=== PATIENT | male | born 1955 | race American Indian/Alaskan Native ===

== ENCOUNTER 2017-02-20 17:46 | Emergency (ER) | payer BC ==
[2017-02-20 22:16] VITALS: BP 131/89
--- NOTE | 2017-02-20 23:34 | Emergency Department Report ---
Abscess Boil HPI - HPI Chief Complaint: Skin/Abscess/Foreign Body Stated Complaint: POSSIBLE SPIDER BITE Time Seen by Provider: 02/20/17 23:00 Duration: 2 Days Location: Other (right sided forehead) Severity: Mild History: No Fever, No Pain, No Purulent Drainage, No Numbness, No Foreign Body, No Previous History, No Insect Bite HPI: This is a 62-year-old male that presents with a 1 cm cellulitis to the right side of forehead. Patient denies any fever or chills. Denies any drainage or pus. Patient stated as noted this 2 days ago. Patient denies taking anything [id number] for her symptoms. Associated symptoms including pain to touch and discussed pain as aching. Patient does not seem toxic or ill in appearance. No signs of distress noted. Home Medications: Home Medications Medication Instructions Recorded Confirmed Last Taken Cephalexin [Keflex] 500 mg PO Q6H 01/04/15 01/04/15 01/04/15 04:45 Oxycodone HCl/Acetaminophen 1 tab PO Q6H PRN 01/04/15 01/04/15 01/04/15 03:00 [OxyCODONE-Acetaminophen 7.5-325] Previous Rx's Medication Instructions Recorded Last Taken Type Sulfamethoxazole/Trimethoprim 1 each PO BID 7 Days 02/20/17 Unknown Rx [Bactrim DS TAB] Allergies/Adverse Reactions: Allergies Allergy/AdvReac Type Severity Reaction Status Date / Time No Known Allergies Allergy Verified 01/04/15 07:59 ED Review of Systems ROS: Stated complaint: POSSIBLE SPIDER BITE Other details as noted in HPI Constitutional: denies: chills, fever Eyes: denies: eye pain, eye discharge, vision change ENT: denies: ear pain, throat pain Respiratory: denies: cough, shortness of breath, wheezing Cardiovascular: denies: chest pain, palpitations Endocrine: no symptoms reported Gastrointestinal: denies: abdominal pain, nausea, diarrhea Genitourinary: denies: urgency, dysuria Musculoskeletal: denies: back pain, joint swelling, arthralgia Skin: denies: rash, lesions Neurological: denies: headache, weakness, paresthesias Psychiatric: denies: anxiety, depression Hematological/Lymphatic: denies: easy bleeding, easy bruising ED Past Medical Hx - Past Medical History Previous Medical History?: Yes Hx Hypertension: No Hx Congestive Heart Failure: No Hx Diabetes: No Hx GERD: Yes Hx Renal Disease: No Hx Asthma: No Hx COPD: No - Surgical History Past Surgical History?: Yes Additional Surgical History: HEMORRHOIDECTOMY. UMBILICAL HERNIA REPAIR 12/30/14 - Social History Smoking Status: Never Smoker Substance Use Type: Alcohol - Medications Home Medications: Home Medications Medication Instructions Recorded Confirmed Last Taken Type Cephalexin [Keflex] 500 mg PO Q6H 01/04/15 01/04/15 01/04/15 04:45 History Oxycodone HCl/Acetaminophen 1 tab PO Q6H PRN 01/04/15 01/04/15 01/04/15 03:00 History [OxyCODONE-Acetaminophen 7.5-325] Sulfamethoxazole/Trimethoprim 1 each PO BID 7 Days 02/20/17 Unknown Rx [Bactrim DS TAB] ED Abscess Boil Physical Exam - Exam General: Vital signs noted. No distress. Alert and acting appropriately. Front/Back of Body, Lg (Color): 1 - 1cm erythema Size: 1 cm Exam: Yes Normal Neurologic Exam, Yes Normal Circulation, No Tenderness, No Fluctuance, No Surrounding Cellulites/Erythema, No Lymphangitis, No Crepitation , No Heart Murmur Exam: GENERAL: The patient is a well-developed, well-nourished male in no apparent distress. He is alert and oriented x3. VITAL SIGNS: Stable. HEENT: Head is normocephalic and atraumatic. Extraocular muscles are intact. Pupils are equal, round, and reactive to light and accommodation. Nares appeared normal. Mouth is well hydrated and without lesions. Mucous membranes are moist. Posterior pharynx clear of any exudate or lesions. NECK: Supple. No carotid bruits. No lymphadenopathy or thyromegaly. LUNGS: Clear to auscultation. HEART: Regular rate and rhythm without murmur. ABDOMEN: Soft, nontender, and nondistended. Positive bowel sounds. No hepatosplenomegaly was noted. EXTREMITIES: Without any cyanosis, clubbing, rash, lesions or edema. NEUROLOGIC : Cranial nerves II through XII are grossly intact. PSYCHIATRIC: Flat affect, but denies suicidal or homicidal ideations. SKIN: 1cm erythema with slightly edema. No pus or drainage noted. Slightly tender to touch. ED Course Vital Signs 02/20/17 02/20/17 02/20/17 18:02 22:15 23:06 Temperature 98.3 F Pulse Rate 80 61 Respiratory 16 18 18 Rate Blood Pressure 123/84 Blood Pressure 131/89 [Left] O2 Sat by Pulse 100 97 98 Oximetry Critical care attestation.: If time is entered above; I have spent that time in minutes in the direct care of this critically ill patient, excluding procedure time. ED Medical Decision Making - Medical Decision Making Ed course: 62-year-old male that presents with right sided forehead cellulitis 1- at the time of discharge the patient was prescribed Bactrim. 2- I instructed the patient to follow signs and symptoms of fever, swelling, pus , drainage, or headache, and if the symptoms are present to report back to emergency room. 3- I used a permanent marker to outline th cellulitic area and instructed patient that if area of redness past the line to report back to emergency room or follow-up with her primary care doctor. 4- I also instructed patient to follow up with his primary care doctor in 3-5 days 5- at the time of discharge the patient denies toxic or ill in appearance. No signs of distress noted. ED Disposition Clinical Impression: Cellulitis Qualifiers: Site of cellulitis: face Qualified Code(s): L03.211 - Cellulitis of face Disposition: DISCHARGED TO HOME OR SELFCARE Is pt being admited?: No Does the pt Need Aspirin: No Condition: Stable Instructions: Cellulitis (ED) Additional Instructions: Follow-up with a primary care doctor in 3-5 days. Take full course of antibiotic as prescribed. If signs and symptoms of fever, swelling, pus, drainage, or headache, and if the symptoms are present to report back to emergency room. Prescriptions: Sulfamethoxazole/Trimethoprim [Bactrim DS TAB] 1 each PO BID 7 Days Referrals: PRIMARY CARE, [Primary Care Provider] - 3-5 Days [facility] [Outside] - 3-5 Days [facility] [Outside] - 3-5 Days Forms: Work/School Release Form(ED)
== END 2017-02-20 23:46 | disposition home or self-care (01) ==
LOC: ED 17:46
DX: L03.211 Cellulitis of face (principal); K21.9 Gastro-esophageal reflux disease without esophagitis; Z90.89 Acquired absence of other organs
CPT/HCPCS: 99281

== ENCOUNTER 2020-08-20 23:01 | Observation (INO) | payer BC ==
--- NOTE | 2020-08-21 00:43 | Emergency Department Report ---
ED Dizziness [facility] - General Chief Complaint: Dizziness Stated Complaint: DIZZINESS Time Seen by Provider: 08/21/20 00:16 Source: patient Mode of arrival: Ambulatory Limitations: No Limitations - History of Present Illness Initial Comments: Patient is here with dizziness, slurred speech that has been progressively worsening for the past two days. no focal weakness. Patient denies any sick contacts, recent travel, nausea, vomiting or chest pain. MD Complaint: dizziness, lightheadedness, near syncope -: days(s) (1) Timing: sudden onset Description: sense of movement, "room spinning", off-balance, difficulty walking History of Same: No History of Trauma: No Severity: severe Improves With: nothing Worsens With: movement Associated Symptoms: denies other symptoms - Related Data Home Medications Medication Instructions Recorded Confirmed Last Taken Oxycodone HCl/Acetaminophen 1 tab PO Q6H PRN 01/04/15 01/04/15 01/04/15 03:00 [OxyCODONE-Acetaminophen 7.5-325] cephALEXin [Keflex] 500 mg PO Q6H 01/04/15 01/04/15 01/04/15 04:45 Previous Rx's Medication Instructions Recorded Last Taken Type Sulfamethoxazole/Trimethoprim 1 each PO BID 7 Days tablet 02/20/17 Unknown Rx [Bactrim DS TAB] Allergies Allergy/AdvReac Type Severity Reaction Status Date / Time No Known Allergies Allergy Verified 01/04/15 07:59 ED Review of Systems ROS: Stated complaint: DIZZINESS Other details as noted in HPI ED Past Medical Hx - Past Medical History Previous Medical History?: Yes Hx Hypertension: No Hx Congestive Heart Failure: No Hx Diabetes: No Hx GERD: Yes Hx Renal Disease: No Hx Asthma: No Hx COPD: No - Surgical History Past Surgical History?: Yes Additional Surgical History: HEMORRHOIDECTOMY. UMBILICAL HERNIA REPAIR 12/30/14 - Social History Smoking Status: Never Smoker Substance Use Type: None - Medications Home Medications: Home Medications Medication Instructions Recorded Confirmed Last Taken Type Oxycodone HCl/Acetaminophen 1 tab PO Q6H PRN 01/04/15 01/04/15 01/04/15 03:00 History [OxyCODONE-Acetaminophen 7.5-325] cephALEXin [Keflex] 500 mg PO Q6H 01/04/15 01/04/15 01/04/15 04:45 History Sulfamethoxazole/Trimethoprim 1 each PO BID 7 Days tablet 02/20/17 Unknown Rx [Bactrim DS TAB] ED Physical Exam - General Limitations: No Limitations General appearance: alert, in no apparent distress - Head Head exam: Present: atraumatic, normocephalic - Eye Eye exam: Present: normal appearance - ENT ENT exam: Present: mucous membranes moist - Neck Neck exam: Present: normal inspection - Respiratory Respiratory exam: Present: normal lung sounds bilaterally. Absent: respiratory distress - Cardiovascular Cardiovascular Exam: Present: regular rate, normal rhythm. Absent: systolic murmur, diastolic murmur, rubs, gallop - GI/Abdominal GI/Abdominal exam: Present: soft, normal bowel sounds - Rectal Rectal exam: Present: deferred - Extremities Exam Extremities exam: Present: normal inspection - Back Exam Back exam: Present: normal inspection - Neurological Exam Neurological exam: Present: alert, oriented X3 - Psychiatric Psychiatric exam: Present: normal affect, normal mood - Skin Skin exam: Present: warm, dry, intact, normal color. Absent: rash ED Course Vital Signs 08/20/20 08/21/20 23:25 01:06 Temperature 99.0 F Pulse Rate 93 H 78 Respiratory 20 18 Rate Blood Pressure 160/137 Blood Pressure 126/82 [Right] O2 Sat by Pulse 91 98 Oximetry ED Medical Decision Making - Lab Data Result diagrams: 08/21/20 00:15 08/21/20 00:15 - EKG Data -: EKG Interpreted by Me EKG shows normal: sinus rhythm Rate: normal - EKG Data Interpretation: other (old inf infarct,none acute) Critical care attestation.: If time is entered above; I have spent that time in minutes in the direct care o f this critically ill patient, excluding procedure time. ED Disposition Clinical Impression: Labile hypertension, Severe dizziness Disposition: [id number] OP ADMIT IP TO THIS HOSP Is pt being admited?: Yes Does the pt Need Aspirin: No Condition: Stable - Assessment Assessment Interval: Baseline - Level of Consciousness 1a. Level of Consciousness: alert/keenly responsive - LOC Questions 1b. LOC Questions: answers both correctly - LOC Command 1c. LOC Commands: performs tasks correctly - Best Gaze 2. Best Gaze: normal - Visual 3. Visual: no visual loss - Facial Palsy 4. Facial Palsy: normal symmetrical movement - Motor Arm 5a. Motor Arm Left: no drift 5b. Motor Arm Right: no drift - Motor Leg 6a. Motor Leg Left: no drift 6b. Motor Leg Right: no drift - Limb Ataxia 7. Limb Ataxia: absent - Sensory 8. Sensory: normal - Best Language 9. Best Language: no aphasia - Dysarthria 10. Dysarthria: normal - Extinction and Inattention 11. Extinction/Inattention: no abnormality - Scoring Total Score: 0 Stroke Severity: No Stroke Symptoms
--- NOTE | 2020-08-21 00:44 | Cat Scan Report ---
CT HEAD/BRAIN WO CON INDICATION / CLINICAL INFORMATION: Dizziness/lightheaded for 2 weeks. TECHNIQUE: All CT scans at this location are performed using CT dose reduction for ALARA by means of automated e xposure control. COMPARISON: None available. FINDINGS: The ventricular system is normal in size and configuration. No focal lesion or mass effect is seen. T here is no evidence of intracranial hemorrhage or acute major vessel occlusion. The calvarium is inta ct. The visualized paranasal sinuses and mastoid air cells are clear. IMPRESSION: No acute abnormality. Signer Name: Vitor Montelongo MD Signed: 08/21/2020 12:39 AM Workstation Name: [id number]
[2020-08-21 00:45] LABS: Creatine Kinase MB 1.8 ng/mL (0.0-4.0)
[2020-08-21 00:46] LABS: Alanine Aminotransferase 54 units/L (7-56); Albumin 3.9 g/dL (3.9-5); BUN/Creatinine Ratio 11; Blood Urea Nitrogen 9 mg/dL (9-20); Calcium 8.2 mg/dL (8.4-10.2); Hemolysis Index 10
--- NOTE | 2020-08-21 00:51 | XRay Report ---
CHEST 1 VIEW 12:42 AM INDICATION / CLINICAL INFORMATION: Lightheadedness/Dizziness. COMPARISON: None available. FINDINGS: SUPPORT DEVICES: None. HEART / MEDIASTINUM: The heart size and pulmonary vasculature are normal. LUNGS / PLEURA: There is mild patchy subsegmental parenchymal disease in the right midlung and left l sury base. No pleural effusion. No pneumothorax. ADDITIONAL FINDINGS: The left hemidiaphragm is mildly elevated. IMPRESSION: 1. Mildly elevated left hemidiaphragm and mild associated left basilar subsegmental atelectasis. 2. Subsegmental parenchymal disease in the right mid lung may be related to subsegmental atelectasis or subsegmental pneumonia. Signer Name: Vitor Montelongo MD Signed: 08/21/2020 12:47 AM Workstation Name: [id number]
[2020-08-21 01:05] LABS: Basophils % (Auto) 0.3 % (0.0-1.8); Hematocrit 40.1 % (35.5-45.6); Hemoglobin 12.7 gm/dl (11.8-15.2); Lymphocytes # (Auto) 0.6 K/mm3 (1.2-5.4); Mean Corpuscular HGB Conc 32 % (32-34); Mean Corpuscular Volume 74 fl (84-94); Monocytes # (Auto) 0.2 K/mm3 (0.0-0.8); Monocytes % (Auto) 4.3 % (0.0-7.3); Platelet Count 146 K/mm3 (140-440); Red Blood Count 5.39 M/mm3 (3.65-5.03)
[2020-08-21 01:14] LABS: INR 0.95 (0.87-1.13)
[2020-08-21 01:15] LABS: Partial Thromboplastin Time 36.8 Sec. (24.2-36.6)
[2020-08-21] MEDS ORDERED: ACETAMINOPHEN 325 MG TAB PO PRN (02:03)
[2020-08-21] MEDS ORDERED: METOCLOPRAMIDE 10 MG TAB PO PRN (02:03)
[2020-08-21] MEDS ORDERED: MAGNESIUM HYDROXIDE (MOM) ORAL LIQD UDC PO PRN ×2 (02:03)
[2020-08-21] MEDS ORDERED: PROMETHAZINE 25 MG RECT SUPP PR PRN (02:03)
[2020-08-21] MEDS ORDERED: ONDANSETRON 4 MG/2 ML INJ IV PRN ×2 (02:03)
--- NOTE | 2020-08-21 02:20 | History and Physical Report ---
History of Present Illness Date of examination: 08/21/20 Date of admission: 08/21/20 01:21 Chief complaint: Dizziness Near Syncope History of present illness: 65-year-old male with no significant past medical history except GERD , history of hemorrhoidectomy in the past and umbilical hernia repair presenting to the emergency room today with a complaint of severe dizziness and slurred speech . Symptoms were said to have started 2 days ago and got worse today. He denies any headaches, no fever or chills, no chest pain or shortness of breath, no nausea vomiting and no diarrhea. Patient denies any hematuria or dysuria. Denies any sick contacts and no recent travel, denies any contact with anyone with COVID-19. Upon arrival in the emergency room patient states he feels lightheaded had a near syncopal episode. However he indicates that his speech has improved . Work-up in the emergency room did not reveal any acute abnormality however his blood pressure was slightly elevated. He is not currently on any antihypertensive medication. Patient is being admitted for evaluation of his severe dizziness, slow speech and to rule out CVA. Past History Past Medical History: GERD Past Surgical History: hernia repair (Umbilical Hernia repair in 12/2014,Hemorrhoidectomy), Other Social history: no significant social history Family history: no significant family history Medications and Allergies Allergies Allergy/AdvReac Type Severity Reaction Status Date / Time No Known Allergies Allergy Verified 01/04/15 07:59 Home Medications Medication Instructions Recorded Confirmed Last Taken Type Oxycodone HCl/Acetaminophen 1 tab PO Q6H PRN 01/04/15 01/04/15 01/04/15 03:00 History [OxyCODONE-Acetaminophen 7.5-325] cephALEXin [Keflex] 500 mg PO Q6H 01/04/15 01/04/15 01/04/15 04:45 History Sulfamethoxazole/Trimethoprim 1 each PO BID 7 Days tablet 02/20/17 Unknown Rx [Bactrim DS TAB] Review of Systems Constitutional: no fever, no chills Ears, nose, mouth and throat: no nasal congestion, no sore throat Cardiovascular: no chest pain, no palpitations Respiratory: no cough, no shortness of breath Gastrointestinal: no abdominal pain, no nausea, no vomiting, no diarrhea Genitourinary Male: no dysuria, no flank pain Musculoskeletal: no neck pain, no low back pain Integumentary: no rash, no pruritis Neurological: syncope (Near Syncope), vertigo, change in speech, no headaches, no confusion Psychiatric: no anxiety, no depression Exam - Constitutional Vitals: Temp Pulse Resp BP Pulse Ox 99.0 F 70 14 137/84 96 08/20/20 23:25 08/21/20 02:00 08/21/20 02:00 08/21/20 02:00 08/21/20 02:00 General appearance: Present: no acute distress, well-nourished - EENT Eyes: Present: PERRL, EOM intact, scleral icterus ENT: hearing intact, clear oral mucosa, dentition normal - Neck Neck: Present: supple, normal ROM - Respiratory Respiratory effort: normal Respiratory: bilateral: CTA - Cardiovascular Rhythm: regular Heart Sounds: Present: S1 & S2. Absent: gallop, systolic murmur, diastolic murmur, rub - Extremities Extremities: no ischemia, pulses intact, pulses symmetrical, No edema, Full ROM Peripheral Pulses: within normal limits - Abdominal General gastrointestinal: Present: soft, non-tender, non-distended, normal bowel sounds. Absent: mass - Integumentary Integumentary: Present: clear, warm, dry - Musculoskeletal Musculoskeletal: strength equal bilaterally - Psychiatric Psychiatric: appropriate mood/affect, intact judgment & insight, memory intact, cooperative - Neurologic Neurologic: CNII-XII intact, no focal deficits, moves all extremities HEART Score - HEART Score Troponin: Troponin T < 0.010 ng/mL (0.00-0.029) 08/21/20 00:15 Results - Labs CBC & Chem 7: 08/21/20 00:15 08/21/20 00:15 Labs: Abnormal lab results 08/21/20 08/21/20 08/21/20 Range/Units 00:15 00:15 00:30 WBC 4.0 L (4.5-11.0) K/mm3 RBC 5.39 H (3.65-5.03) M/mm3 MCV 74 L (84-94) fl MCH 24 L (28-32) pg Lymph # (Auto) 0.6 L (1.2-5.4) K/mm3 Seg Neutrophils % 80.4 H (40.0-70.0) % APTT 36.8 H (24.2-36.6) Sec. Glucose 116 H (75-100) mg/dL Calcium 8.2 L (8.4-10.2) mg/dL AST 55 H (5-40) units/L Assessment and Plan - Patient Problems (1) Severe dizziness Current Visit: Yes Status: Acute Plan to address problem: Etiology is unclear however patient will be scheduled for MRI of the brain, ech ocardiogram and carotid Doppler. We will also rule out for possible CVA. We will place consult to neurology for evaluation. (2) Labile hypertension Current Visit: Yes Status: Acute Plan to address problem: We will monitor vital signs closely. Will commence on antihypertensive medications as needed. (3) DVT prophylaxis Current Visit: Yes Status: Acute Plan to address problem: Patient placed on subcutaneous Lovenox. (4) Full code status Current Visit: Yes Status: Acute
[2020-08-21] MEDS: ACETAMINOPHEN 325 MG TAB PO PRN ×3 (03:50→23:15)
--- NOTE | 2020-08-21 10:47 | Magnetic Resonance Report ---
MR brain wo con INDICATION / CLINICAL INFORMATION: 65 years Male; dizziness, lightheaded for 2 weeks.. TECHNIQUE: Multiplanar, multisequence MR images of the brain were obtained. The study was performed using the fa st acquisition sequences. COMPARISON: The study is compared to the previous CT of 08/21/2020. FINDINGS: BRAIN / INTRACRANIAL CONTENTS: On the FLAIR sequences, there are a few scattered small hyperintense f oci involving the cerebral white matter most consistent with microvascular angiopathy. The diffusion imaging reveals no evidence of acute infarction. There is mild cerebral atrophy. The ventricular syst em is correspondingly appropriate in size and configuration. No extra-axial fluid collections or sign ificant mass effect is identified. CRANIOCERVICAL JUNCTION: No significant abnormality. VASCULAR FLOW-VOIDS: No significant abnormality. ORBITS: No significant abnormality of visualized orbits. SINUSES / MASTOIDS: There is mild mucosal thickening within the ethmoid air cells. ADDITIONAL FINDINGS: None. IMPRESSION: 1. There is mild microvascular angiopathy without evidence of recent infarction. Signer Name: Nehemias Phillips MD Signed: 08/21/2020 10:43 AM Workstation Name: [id number]
--- NOTE | 2020-08-21 11:20 | Vascular Lab Report ---
VL carotid duplex BILAT INDICATION / CLINICAL INFORMATION: stroke. COMPARISON: None available. FINDINGS: Only minimal plaque formation is demonstrated at the bifurcations. Velocity measurements and waveform analysis indicate less than 50% stenosis of each internal carotid artery, according to Nascet criter ia. Normal antegrade flow is demonstrated in both vertebral arteries. IMPRESSION: 1. No significant stenosis. Signer Name: Tre Ospina MD Signed: 08/21/2020 11:15 AM Workstation Name: [id number]
[2020-08-21] MEDS: ASPIRIN 325 MG TAB PO SCH (11:46)
[2020-08-21] MEDS ORDERED: FLU VACC QUAD 2020-2021 (6 months +)/PF 60 0.5 ML SYRINGE IM ONE (12:00)
[2020-08-21] MEDS ORDERED: KETOROLAC 30 MG/1 ML INJ IV ONE (13:04)
--- NOTE | 2020-08-21 13:13 | Event Note ---
Date: 08/21/20 Patient seen and examined reports dizziness with change in position. This likely represents symptomatic of vertigo. We will start the patient on scheduled meclizin. Will give Toradol for complaint headache.
[2020-08-21] MEDS: MECLIZINE 25 MG TAB PO SCH ×2 (13:49→22:32)
[2020-08-21 19:04] LABS: Bacteria,Urine 1+ /HPF (Negative); Bilirubin,Urine NEG (Negative); Blood,Urine NEG (Negative); Color,Urine Yellow (Yellow); Mucus,Urine FEW /HPF; Protein,Urine <15 mg/dL mg/dL (Negative)
[2020-08-21 19:09] LABS: Amphetamine Screen,Urine Negative; Benzodiazepines Screen,Urine Negative; Cannabinoid Screen,Urine Negative; Cocaine Screen,Urine Negative; Methadone Screen,Urine Negative; Opiate Screen,Urine Negative
[2020-08-21] MEDS: traMADol 50 MG TAB PO PRN (22:32)
[2020-08-21] MEDS: ENOXAPARIN 40 MG/0.4 ML INJ SUB-Q SCH (22:33)
[2020-08-22 04:55] LABS: Basophils % (Auto) 0.2 % (0.0-1.8); Hemoglobin 12.6 gm/dl (11.8-15.2); Lymphocytes # (Auto) 0.6 K/mm3 (1.2-5.4); Lymphocytes % (Auto) 11.5 % (13.4-35.0); Mean Corpuscular HGB Conc 32 % (32-34); Mean Corpuscular Volume 74 fl (84-94); Monocytes # (Auto) 0.2 K/mm3 (0.0-0.8); Platelet Count 183 K/mm3 (140-440); Red Blood Count 5.26 M/mm3 (3.65-5.03); Red Cell Distribution Width 14.1 % (13.2-15.2)
[2020-08-22 05:13] LABS: INR 0.96 (0.87-1.13)
[2020-08-22 05:22] LABS: BUN/Creatinine Ratio 13; Blood Urea Nitrogen 12 mg/dL (9-20); Calcium 8.3 mg/dL (8.4-10.2); Chol/HDL Ratio 4.19 %; HDL Cholesterol 42 mg/dL (40-59); Hemolysis Index 1; LDL Cholesterol,Direct 103 mg/dL (50-130)
[2020-08-22] MEDS: MECLIZINE 25 MG TAB PO SCH ×3 (05:50→21:30)
[2020-08-22] MEDS: ACETAMINOPHEN 325 MG TAB PO PRN (10:02)
[2020-08-22] MEDS: ASPIRIN 325 MG TAB PO SCH (10:02)
--- NOTE | 2020-08-22 12:23 | Progress Note ---
Assessment and Plan Assessment and plan: 65-year-old male with no significant past medical history except GERD , history of hemorrhoidectomy in the past and umbilical hernia repair presenting to the emergency room today with a complaint of severe dizziness and slurred speech . Symptoms were said to have started 2 days ago and got worse today. He denies any headaches, no fever or chills, no chest pain or shortness of breath, no nausea vomiting and no diarrhea. Patient denies any hematuria or dysuria. Denies any sick contacts and no recent travel, denies any contact with anyone with COVID-19. Upon arrival in the emergency room patient states he feels lightheaded had a near syncopal episode. However he indicates that his speech has improved . Work-up in the emergency room did not reveal any acute abnormality however his blood pressure was slightly elevated. He is not currently on any antihypertensive medication. Patient is being admitted for evaluation of his severe dizziness, slow speech and to rule out CVA. Imaging studies have been negative so far including CT and MRI Patient today informs me of hx of Migraine. Vertigo Migraine headache with syncope GERD Hypertension Plan Continue supportive care Place on telemetry monitoring Oxygen Pain control Echo pending. Orthostatic checked and normal Gentle hydration. Continue observation and anticipate discharge in am History Interval history: Patient seen and exmained, had a repeat syncopal episode last night with associa dariusz nausea. Hospitalist Physical - Physical exam Narrative exam: VITAL SIGNS: Reviewed. GENERAL: The patient appears normally developed, Vital signs as documented. HEAD: No signs of head trauma. EYES: Pupils are equal. Extraocular motions intact. No nystagmus appreciated EARS: Hearing grossly intact. MOUTH: Oropharynx is normal. NECK: No adenopathy, no JVD. CHEST: Chest with clear breath sounds bilaterally. No wheezes, rales, or rhonchi. CARDIAC: Regular rate and rhythm. S1 and S2, without murmurs, gallops, or rubs. VASCULAR: No Edema. Peripheral pulses normal and equal in all extremities. ABDOMEN: Soft, non tender and non distended. No rebound or guarding, and no masses palpated. Bowel Sounds normal. MUSCULOSKELETAL: Good range of motion of all major joints. Extremities without clubbing, cyanosis or edema. NEUROLOGIC EXAM: Alert and oriented x 3 No focal sensory or strength deficit s. Speech normal. Follows commands. PSYCHIATRIC: Mood normal. SKIN: detail exam as documented in skin assessment - Constitutional Vitals: Temp Pulse Resp BP Pulse Ox 98.4 F 89 20 122/74 97 08/22/20 05:29 08/21/20 22:00 08/22/20 05:29 08/22/20 05:29 08/21/20 05:12 General appearance: Present: no acute distress, well-nourished HEART Score - HEART Score Troponin: Troponin T < 0.010 ng/mL (0.00-0.029) 08/21/20 00:15 Results - Labs CBC & Chem 7: 08/22/20 04:09 08/22/20 04:09 Labs: Laboratory Last Values WBC 5.4 K/mm3 (4.5-11.0) 08/22/20 04:09 RBC 5.26 M/mm3 (3.65-5.03) H 08/22/20 04:09 Hgb 12.6 gm/dl (11.8-15.2) 08/22/20 04:09 Hct 39.0 % (35.5-45.6) 08/22/20 04:09 MCV 74 fl (84-94) L 08/22/20 04:09 MCH 24 pg (28-32) L 08/22/20 04:09 MCHC 32 % (32-34) 08/22/20 04:09 RDW 14.1 % (13.2-15.2) 08/22/20 04:09 Plt Count 183 K/mm3 (140-440) 08/22/20 04:09 Lymph % (Auto) 11.5 % (13.4-35.0) L 08/22/20 04:09 [place] % (Auto) 4.0 % (0.0-7.3) 08/22/20 04:09 Eos % (Auto) 0.0 % (0.0-4.3) 08/22/20 04:09 Baso % (Auto) 0.2 % (0.0-1.8) 08/22/20 04:09 Lymph # (Auto) 0.6 K/mm3 (1.2-5.4) L 08/22/20 04:09 [place] # (Auto) 0.2 K/mm3 (0.0-0.8) 08/22/20 04:09 Eos # (Auto) 0.0 K/mm3 (0.0-0.4) 08/22/20 04:09 Baso # (Auto) 0.0 K/mm3 (0.0-0.1) 08/22/20 04:09 Seg Neutrophils % 84.3 % (40.0-70.0) H 08/22/20 04:09 Seg Neutrophils # 4.5 K/mm3 (1.8-7.7) 08/22/20 04:09 PT 13.0 Sec. (12.2-14.9) 08/22/20 04:09 INR 0.96 (0.87-1.13) 08/22/20 04:09 APTT 36.8 Sec. (24.2-36.6) H 08/21/20 00:30 Sodium 137 mmol/L (137-145) 08/22/20 04:09 Potassium 4.0 mmol/L (3.6-5.0) 08/22/20 04:09 Chloride 98.0 mmol/L (98-107) 08/22/20 04:09 Carbon Dioxide 30 mmol/L (22-30) 08/22/20 04:09 Anion Gap 13 mmol/L 08/22/20 04:09 BUN 12 mg/dL (9-20) 08/22/20 04:09 Creatinine 0.9 mg/dL (0.8-1.3) 08/22/20 04:09 Estimated GFR > 60 ml/min 08/22/20 04:09 BUN/Creatinine Ratio 13 % 08/22/20 04:09 Glucose 123 mg/dL (75-100) H 08/22/20 04:09 Calcium 8.3 mg/dL (8.4-10.2) L 08/22/20 04:09 Total Bilirubin 0.70 mg/dL (0.1-1.2) 08/21/20 00:15 AST 55 units/L (5-40) H 08/21/20 00:15 ALT 54 units/L (7-56) 08/21/20 00:15 Alkaline Phosphatase 105 units/L (35-129) 08/21/20 00:15 Total Creatine Kinase 118 units/L (55-170) 08/21/20 00:15 CK-MB (CK-2) 1.8 ng/mL (0.0-4.0) 08/21/20 00:15 CK-MB (CK-2) Rel Index 1.5 (0-4) 08/21/20 00:15 Troponin T < 0.010 ng/mL (0.00-0.029) 08/21/20 00:15 Total Protein 6.7 g/dL (6.3-8.2) 08/21/20 00:15 Albumin 3.9 g/dL (3.9-5) 08/21/20 00:15 Albumin/Globulin Ratio 1.4 % 08/21/20 00:15 Triglycerides 193 mg/dL (2-149) H 08/22/20 04:09 Cholesterol 176 mg/dL (50-199) 08/22/20 04:09 LDL Cholesterol Direct 103 mg/dL (50-130) 08/22/20 04:09 HDL Cholesterol 42 mg/dL (40-59) 08/22/20 04:09 Cholesterol/HDL Ratio 4.19 % 08/22/20 04:09 Urine Color Yellow (Yellow) 08/21/20 18:00 Urine Turbidity Clear (Clear) 08/21/20 18:00 Urine pH 7.0 (5.0-7.0) 08/21/20 18:00 Ur Specific [place] 1.004 (1.003-1.030) 08/21/20 18:00 Urine Protein <15 mg/dl mg/dL (Negative) 08/21/20 18:00 Urine Glucose (UA) Neg mg/dL (Negative) 08/21/20 18:00 Urine Ketones Neg mg/dL (Negative) 08/21/20 18:00 Urine Blood Neg (Negative) 08/21/20 18:00 Urine Nitrite Neg (Negative) 08/21/20 18:00 Urine Bilirubin Neg (Negative) 08/21/20 18:00 Urine Urobilinogen 2.0 mg/dL (<2.0) 08/21/20 18:00 Ur Leukocyte Esterase Neg (Negative) 08/21/20 18:00 Urine WBC (Auto) 1.0 /HPF (0.0-6.0) 08/21/20 18:00 Urine RBC (Auto) 5.0 /HPF (0.0-6.0) 08/21/20 18:00 U Epithel Cells (Auto) < 1.0 /HPF (0-13.0) 08/21/20 18:00 Urine Bacteria (Auto) 1+ /HPF (Negative) 08/21/20 18:00 Urine Mucus Few /HPF 08/21/20 18:00 Urine Opiates Screen Negative 08/21/20 18:00 Urine Methadone Screen Negative 08/21/20 18:00 Ur Barbiturates Screen Negative 08/21/20 18:00 Ur Phencyclidine Scrn Negative 08/21/20 18:00 Ur Amphetamines Screen Negative 08/21/20 18:00 U Benzodiazepines Scrn Negative 08/21/20 18:00 Urine Cocaine Screen Negative 08/21/20 18:00 U Marijuana (THC) Screen Negative 08/21/20 18:00 Drugs of Abuse Note Disclamer 08/21/20 18:00 - Diagnostic Impressions Diagnostic Impressions: Echocardiogram 08/21/20 02:09 Transthoracic Echocardiogram Indication: Stroke BP: 118/72 HR: 80 Conclusions *Global left ventricular systolic function is normal. *The estimated ejection fraction is 55-60%. *Mild concentric left ventricular hypertrophy is observed. *There is no significant mitral regurgitation. *There is trace tricuspid regurgitation. *There is evidence of borderline pulmonary hypertension. *The right ventricular systolic pressure is calculated at 28 mmHg. *A patent foramen ovale is not demonstrated by agitated saline contrast. Findings Left Ventricle: The left ventricular chamber size is normal. Mild concentric left ventricular hypertrophy is observed. Global left ventricular systolic function is normal. The estimated ejection fraction is 55-60%. Left Atrium: The left atrial chamber size is normal. Right Ventricle: The right ventricular cavity size is normal. The right ventricular global systolic function is normal. Right Atrium: The right atrial cavity size is normal. A patent foramen ovale is not demonstrated by agitated saline contrast. Aortic Valve: The aortic valve is trileaflet. The aortic valve leaflets are mildly thickened. There is no evidence of aortic regurgitation. There is no evidence of aortic stenosis. Mitral Valve: The mitral valve leaflets appear normal. There is no evidence of mitral regurgitation. There is no evidence of mitral stenosis. Tricuspid Valve: There is trace tricuspid regurgitation. The right ventricular systolic pressure is calculated at 28 mmHg. There is evidence of borderline pulmonary hypertension. Pulmonic Valve: There is trace pulmonic regurgitation. Pericardium: There is no pericardial effusion. Aorta: There is no dilatation of the ascending aorta. There is no dilatation of the aortic root. Venous: The inferior vena cava appears normal in size. Measurements Chambers 2D Name Value Normal Range IVSd (2D) 1.01 cm (0.6 - 1.1) LVPWd (2D) 1.09 cm (0.6 - 1.1) LVIDd (2D) 4.17 cm (3.7 - 5.6) LVIDs (2D) 3.07 cm (2 - 3.8) LV FS (2D) 26.27 % - EF Teichholz (2D) 51.9 % - Ao root diameter (2D) 3.02 cm (2 - 3.7) Volumes/Mass Name Value Normal Range LA ESV SP 4CH (A/L) 26 ml - LA ESV SP 2CH (A/L) 43.81 ml - LA ESV BP (A/L) 35.94 ml - LA ESV BP (A/L) index 15.56 ml/m2 - LA ESV SP 4CH (MOD) 24.12 ml - LA ESV SP 2CH (MOD) 42.91 ml - LA ESV BP (MOD) 34.14 ml - LA ESV BP (MOD) index 14.78 ml/m2 - Diastolic/Systolic Function Name Value Normal Range MV E-wave Vmax 0.58 m/sec - MV deceleration time 223.42 msec - MV A-wave Vmax 0.58 m/sec - MV E:A ratio 1 ratio - Aortic Valve Name Value Normal Range AV Vmax 1.35 m/sec - AV VTI 24.73 cm - AV peak gradient 7.32 mmHg - AV mean gradient 3.81 mmHg - LVOT diameter 2 cm - LVOT Vmax 0.83 m/sec - LVOT VTI 17.1 cm - LVOT peak gradient 2.75 mmHg - LVOT mean gradient 1.74 mmHg - SV LVOT 53.87 ml - TEZ (continuity Vmax) 1.93 cm2 - TEZ (continuity VTI) 2.18 cm2 - Tricuspid Valve Name Value Normal Range TR Vmax 2.39 m/sec - TR peak gradient 23 mmHg - RAP 3 mmHg - RVSP 28 mmHg - Pulmonic Valve/Qp:Qs Name Value Normal Range PV Vmax 1.09 m/sec - PV peak gradient 4.74 mmHg - PV acceleration time 79.92 msec - Palacio/IV: Voiding Method Toilet IV Catheter Type [Left Forearm INT / Saline Lock ] Active Medications - Current Medications Current Medications: Generic Name Dose Route Start Last Admin Trade Name Freq PRN Reason Stop Dose Admin Acetaminophen 650 mg 08/21/20 02:03 08/22/20 10:02 Tylenol PO 650 mg Q4H PRN Administration Pain MILD(1-3)/Fever >100.5/GARRETT Aspirin 325 mg 08/21/20 10:00 08/22/20 10:02 Aspirin PO 325 mg QDAY YANA Administration Atorvastatin Calcium 40 mg 08/21/20 22:00 08/21/20 22:32 Lipitor PO 40 mg QHS YANA Administration Bisacodyl 10 mg 08/21/20 02:03 Dulcolax CO QDAY PRN Constipation Enoxaparin Sodium 40 mg 08/21/20 22:00 08/21/20 22:33 Enoxaparin SUB-Q 40 mg QDAY@2200 [facility] Administration Protocol Ketorolac Tromethamine 15 mg 08/22/20 18:00 Toradol IV 08/23/20 00:01 Q6HR YANA Magnesium Hydroxide 30 ml 08/21/20 02:03 Milk Of Magnesia PO Q4H PRN Constipation Meclizine HCl 25 mg 08/21/20 13:00 08/22/20 05:50 Antivert PO Not Given Q8H YANA Metoclopramide HCl 10 mg 08/21/20 02:03 Reglan PO Q6H PRN Nausea And Vomiting Ondansetron HCl 4 mg 08/21/20 02:03 Zofran IV Q8H PRN Nausea And Vomiting Promethazine HCl 25 mg 08/21/20 02:03 Phenergan CO Q6H PRN Nausea And Vomiting Sodium Chloride 10 ml 08/21/20 10:00 08/22/20 10:04 Sodium Chloride Flush Syringe 10 Ml IV 10 ml BID YANA Administration Sodium Chloride 10 ml 08/21/20 02:03 Sodium Chloride Flush Syringe 10 Ml IV PRN PRN LINE FLUSH Tramadol HCl 50 mg 08/21/20 13:05 08/21/20 22:32 Ultram PO 50 mg Q6H PRN Administration Pain, Moderate (4-6) Nutrition/Malnutrition Assess - Dietary Evaluation Nutrition/Malnutrition Findings: Nutrition Notes Start: 08/21/20 12:04 Freq: Status: Active Protocol: Document 08/21/20 12:04 LAURIE (Rec: 08/21/20 12:12 BK [id number]) Co-Sign 08/21/20 12:04 LM Nutrition Notes Need for Assessment generated from: MD Order,Education Initial or Follow up Assessment Current Diagnosis Hypertension Other Pertinent Diagnosis near syncope Current Diet Cardiac Labs/Tests Reviewed Pertinent Medications Reviewed Height 6 ft 1 in Weight 113 kg [place] Body Weight (kg) 83.63 BMI 32.8 Intake Prior to Admission Fair Weight Status Obese Subjective/Other Information MD consult for stroke diet education. Pt reports no hx of stroke. Pt given diet education for HTN. Pt reports decreased appetite x2 days [employer] and consuming 50% meals. Burn Absent Trauma Absent GI Symptoms None Food Allergy No Current % PO Fair (50-74%) Minimum of two criteria No physical signs of malnutrition #2 Nutrition Diagnosis Food and nutrition-related knowledge deficit Etiology no prior diet education As Evidenced by Signs and Symptoms pt had questions #1 Nutrition Diagnosis Inadequate oral intake Etiology decreased appetite As Evidenced by Signs and Symptoms pt consuming 50% meals Is patient on ventilator? No Is Patient Ambulatory and/or Out of Bed Yes REE-([facility]-ambulatory/OOB) [ 2566.044 [id number]] Kcal/Kg value to use for calculation 18 Approximate Energy Requirements Using 4 kcal/Kg Calculation Used for Recommendations Kcal/kg Additional Notes Pro: 78-98 g (0.8-1 g/kg AdjBW , 98kg) Fluid: 1 ml/kcal Nutrition Intervention Change Diet Order: Continue Cardiac Teaching Recipient Patient Learning Readiness Good Teaching Methods Discussion,Handout Response to Teaching Verbalize understanding Education Handouts Provided Low Sodium Nutrition Therapy Barriers to Learning No Barriers RD phone number provided Yes Patient aware of follow up options Yes Goal #1 Meet at least 75% energy and protein needs via PO intakes Anticipated Discharge Needs: Cardiac diet Follow-Up By: 08/25/20 Additional Comments F/U for intakes
[2020-08-22] MEDS: SODIUM CHLORIDE 0.9% 1000 ML 1,000 ML IV SCH (13:52)
[2020-08-22] MEDS: KETOROLAC 30 MG/1 ML INJ IV SCH (18:01)
[2020-08-22] MEDS: ENOXAPARIN 40 MG/0.4 ML INJ SUB-Q SCH (21:30)
[2020-08-22] MEDS: traMADol 50 MG TAB PO PRN (21:30)
[2020-08-23] MEDS: KETOROLAC 30 MG/1 ML INJ IV SCH (00:46)
[2020-08-23] MEDS: MECLIZINE 25 MG TAB PO SCH ×2 (06:11→13:40)
[2020-08-23] MEDS: traMADol 50 MG TAB PO PRN (06:11)
[2020-08-23] MEDS: SODIUM CHLORIDE 0.9% 1000 ML 1,000 ML IV SCH (08:32)
[2020-08-23] MEDS: ASPIRIN 325 MG TAB PO SCH (09:49)
--- NOTE | 2020-08-23 12:03 | Discharge Summary ---
Providers - Providers Date of Admission: 08/21/20 01:21 Attending physician: SERGE ALLRED MD 08/21/20 02:03 Consult to Dietitian/Nutrition [CONS] Routine Physician Instructions: Reason For Exam: Reason for Consult: Nutrition Recommendations Reason for Consult: Diet education Consult to Physician [CONS] Routine Comment: Consulting Provider: KAREN MARR Physician Instructions: Reason For Exam: Near syncope, Slurred speech R/O CVA Occupational Therapy Evaluate and Treat [CONS] Routine Comment: Reason For Exam: Neuro deficits Physical Therapy Evaluation and Treat [CONS] Routine Comment: Reason For Exam: Neuro deficits 08/21/20 02:07 Speech Therapy Evaluation and Treat [CONS] Routine Reason For Exam: swallow eval 08/21/20 12:59 Occupational Therapy Evaluate and Treat [CONS] Routine Comment: Reason For Exam: vestibular traning Primary care physician: CARPET RENOVATOR Hospitalization Reason for admission: Vertigo Condition: Stable Hospital course: 65-year-old male with no significant past medical history except GERD , history of hemorrhoidectomy in the past and umbilical hernia repair presenting to the emergency room today with a complaint of severe dizziness and slurred speech . Symptoms were said to have started 2 days ago and got worse today. He denies any headaches, no fever or chills, no chest pain or shortness of breath, no nausea vomiting and no diarrhea. Patient denies any hematuria or dysuria. Denies any sick contacts and no recent travel, denies any contact with anyone with COVID-19. Upon arrival in the emergency room patient states he feels lightheaded had a near syncopal episode. However he indicates that his speech has improved . Work-up in the emergency room did not reveal any acute abnormality however his blood pressure was slightly elevated. He is not currently on any antihypertensive medication. Patient is being admitted for evaluation of his severe dizziness, slow speech and to rule out CVA. Patient on day 2 is doing well no further syncopal episode. Of note he did have a syncopal episode in the hospital on day 1. Echocardiogram shows preserved EF. No valvular abnormalities documented. It is likely that he does have migraine headache associated syncope and also vertigo secondary to vestibular dysfunction. I recommended outpatient Occupational Therapy for him. I discussed the side effects associated with midodrine. Imaging studies have been negative so far including CT and MRI Patient today informs me of hx of Migraine. Vestibular dysfunction Vertigo Migraine headache with syncope GERD Hypertension Disposition: DC-01 TO HOME OR SELFCARE Time spent for discharge: 35 minutes Core Measure Documentation - Palliative Care Palliative Care/ Comfort Measures: Not Applicable - Core Measures Any of the following diagnoses?: none Exam - Physical Exam Narrative exam: VITAL SIGNS: Reviewed. GENERAL: The patient appears normally developed, Vital signs as documented. HEAD: No signs of head trauma. EYES: Pupils are equal. Extraocular motions intact. No nystagmus appreciated EARS: Hearing grossly intact. MOUTH: Oropharynx is normal. NECK: No adenopathy, no JVD. CHEST: Chest with clear breath sounds bilaterally. No wheezes, rales, or rhonchi. CARDIAC: Regular rate and rhythm. S1 and S2, without murmurs, gallops, or rubs. VASCULAR: No Edema. Peripheral pulses normal and equal in all extremities. ABDOMEN: Soft, non tender and non distended. No rebound or guarding, and no masses palpated. Bowel Sounds normal. MUSCULOSKELETAL: Good range of motion of all major joints. Extremities without clubbing, cyanosis or edema. NEUROLOGIC EXAM: Alert and oriented x 3 No focal sensory or strength deficits. Speech normal. Follows commands. PSYCHIATRIC: Mood normal. SKIN: detail exam as documented in skin assessment - Constitutional Vitals: Temp Pulse Resp BP Pulse Ox 97.9 F 90 16 115/76 91 08/23/20 05:16 08/23/20 05:16 08/23/20 05:16 08/23/20 05:16 08/23/20 05:16 Plan Activity: advance as tolerated, fall precautions Diet: low fat Special Instructions: record daily BP diary, occupational therapy (VESTIBULAR TRANINIG) Follow up with: RAÚL VARELA MD [Primary Care Provider] - 3-5 Days MICHELLE MCKINNEY MD [Staff Physician] - 7 Days Prescriptions: AtorvaSTATin [Lipitor] 40 mg PO QHS #30 tablet Meclizine [Antivert] 25 mg PO Q8H PRN #90 tablet PRN Reason: Vertigo traMADoL [Ultram 50 MG tab] 50 mg PO Q6H PRN #10 tablet PRN Reason: Pain, Moderate (4-6)
[2020-08-23 12:49] VITALS: BP 115/72
== END 2020-08-23 15:26 | disposition home or self-care (01) ==
LOC: ED 23:01 → 3A 08-21 01:21
PROVIDERS: ADMIT Internal Medicine Geriatric Medicine; ATTEND Internal Medicine
DX: R42 Dizziness and giddiness (principal); I10 Essential (primary) hypertension; K21.9 Gastro-esophageal reflux disease without esophagitis; R09.89 Other specified symptoms and signs involving the circulatory and respiratory systems; R47.81 Slurred speech; G43.909 Migraine, unspecified, not intractable, without status migrainosus; Z23 Encounter for immunization; Z98.890 Other specified postprocedural states; Z79.899 Other long term (current) drug therapy
CPT/HCPCS: 36415; 70450; 70551; 71045; 80048; 80053; 80061; 80307; 81001; 82550; 82553; 84484; 85025; 85610; 85730; 92610; 93005; 93306; 93880; 96361; 96372; 96374; 96376; 97162; 97165; 99285; A9270; G0378; J1650; J1885; J7030; 90686